=== PATIENT | female | born 1955 | race Caucasian/White ===

== ENCOUNTER 2024-04-14 06:11 | Day surgery (SDC) | payer MEDICARE, OTHER, SELFPAY ==
[2024-04-14] VITALS (8 sets, daily range): BP systolic 118–132; BP diastolic 69–88; PULSE 66–76; RESP 16; TEMP 36.3–36.9; O2SAT 93–99; BMI 21.9
--- NOTE | 2024-04-14 06:45 | PCM.PRE.AN2 ---
ASA Classification* ASA Classification ASA Classification: 2 Assessment & Plan Anesthesia* Anesthesia Assessment Anesthesia Assessment: Discussed sedation and/or anesthesia options, risks, benefits, and alternatives with patient/parents/legal guardian/POA. Questions invited. The patient/parents/legal guardian/POA seems to understand and agrees to proceed with anesthesia plan. Reviewed the physical assessment, medical history, allergy history and patient home medications list prior to surgery/procedure/anesthetic and documented any changes. Performed airway and anesthesia risk assessments. Anesthesia Type Anesthesia Type: MAC (vs GA) Anesthesia Focused Assessment* Airway Assessment Mouth opens: >3 cm Mallampati Score: II Focused Labs Anesthesia Preop lab: CBC CHEMISTRY COAG Pre-Assessment Diagnosis/Proposed Procedure Planned Operative Procedure(s): BILAT UPPER BLEPHORAPLASTY Anesthesia History Anesthesia History - help desk assistant: Anesthesia History - help desk assistant Hx Hospitalization No 03/31/24 14:57 Any Problems With Anesthesia No 03/31/24 14:57 Cholinesterase deficiency No 03/31/24 14:57 You/Your Family Experience No 03/31/24 14:57 fever (hyperthermia) with Relationship Recent Exposure to Contagious Disease Does patient have nerve No 03/31/24 14:57 stimulator Patient instructed to have device shut off --Does patient have Pacemaker or ICD? When Was Last Pacemaker Check QUESTION #4 FULL TEXT: You/Your Family Experience fever (hyperthermia) with Anesthesia Last Oral Intake Last Oral intake: Last Oral Intake NPO since Meds taken in AM with sips of water? Meds patient instructed to take am of surgery PONV PONV - help desk assistant: PONV - help desk assistant Female Yes 03/31/24 14:57 HX of Motion Sickness No 03/31/24 14:57 HX of N/V After Surgery No 03/31/24 14:57 Non-Smoker Yes 03/31/24 14:57 Duration of Surgery greater Yes 03/31/24 14:57 than 60 minutes Number of Risk Factors 3 03/31/24 14:57 PONV Score Moderate Risk 03/31/24 14:57 Height & Weight Height & Weight: Anesthesia: Height & Weight Height 5 ft 3 in 03/04/24 10:14 Respiratory Assessment Respiratory Assessment - help desk assistant: Respiratory Tract Infection Hx - help desk assistant Hx Respiratory Tract Infection No 03/31/24 14:57 STOP Sleep Apnea STOP Sleep Apnea - help desk assistant: STOP Sleep Apnea - help desk assistant Hx Hypertension Yes: CONTROLLED WITH MED 03/31/24 14:57 Hx Sleep Apnea No 03/31/24 14:57 CPAP BIPAP Do you snore loudly (louder No 03/31/24 14:57 than talking or can be heard Do you often feel tired/ No 03/31/24 14:57 fatigued/ sleepy during daytime? Has anyone observed you stop No 03/31/24 14:57 breathing during sleep? STOP Results Negative 03/31/24 14:57 QUESTION #5 FULL TEXT : Do you snore loudly (louder than talking or can be heard through closed doors)? Tobacco Use History Tobacco Use History - help desk assistant: Tobacco Use History - help desk assistant Tobacco Use Smoking Status Never smoker 03/31/24 14:57 Hx Tobacco Use No 03/31/24 14:57 Years Smoking Packs Smoked per Day Smoking Cessation Date was within the last 15 years Hx Smoking Cessation Date Hx Smoking Cessation Counseling Hematologic Medial History Hematologic Hx - help desk assistant: Hematologic Medical Hx - documentation analyst Hx of Blood Transfusion No 03/31/24 14:57 Hx of Transfusion in last 3 No 03/31/24 14:57 Months Date of Last Transfusion (if within last 3 months) Ever experience any problems No 03/31/24 14:57 with transfusion(s)? Specify any problems Hx of Preganancy in last 3 No 03/31/24 14:57 Months Nurse Filling Out Transfusion DSCHRIBER 03/31/24 14:57 & Questions: Date: 03/31/24 03/31/24 14:57 Time: 14:58 03/31/24 14:57 Patient unable to answer at this time (ie. confused, unrespo /Reproduction History /Reproductive History - help desk assistant: /Reproductive Hx- help desk assistant Hx Now No 03/31/24 14:57 Gestational Age (in weeks): EDC: Hx Hx Para Hx Section SAB No 03/31/24 14:57 Active Medications Active Medications: Current Medications Generic Name Dose Route Start Last Admin Trade Name Freq PRN Reason Stop Dose Admin Cefazolin Sodium 2 gm/ N/A 20 mls @ 400 mls/hr 04/14/24 07:30 IV 04/14/24 07:32 PREOP ONE [facility] Medical History Bladder disease Wears glasses Back pain History of IBS Heartburn Non-smoker Skin cancer Hypertension Home Medications ?Medication ?Instructions ?Recorded ?Last Taken ?Type amlodipine 5 mg tablet 5 mg PO DAILY 03/04/24 04/14/24 History tolterodine 4 mg capsule,extended 4 mg PO DAILY 03/04/24 04/13/24 History release 24 hr estradiol 1 mg tablet 1 mg PO DAILY 03/31/24 04/13/24 History medroxyprogesterone 2.5 mg tablet 2.5 mg PO DAILY 03/31/24 04/13/24 History Allergy/AdvReac Type Severity Reaction Status Date / Time Sulfa (Sulfonamide Allergy Mild hives Verified 03/31/24 14:53 Antibiotics) (sulfa drugs) Family History Aunt Breast cancer Mother Colon cancer Sister Colon cancer Grandmother Colon cancer Surgical History Hx of colonoscopy Hx of melanoma excision H/O section Social History Smoking Status: Never smoker alcohol intake: never substance use type: does not use additional social history: pt uses aspirin and ibuprofen, pt denies smoking, vaping, edibles, marijuana use No family history of blood clots, Review of Systems (Anesthesia) ROS Narrative System reviewed and no additional complaints, except as documented.
--- NOTE | 2024-04-14 07:30 | HP.PCM.SX_ITS ---
HPI - General HPI Narrative Debby Sawyer, 68 year old female referred for upper bleph consult by Bia Cam. She reports that she has trouble seeing stoplights and has to zhou her neck in order to see such things given that there is excess skin overhanging her upper eyelid margin. She has never had any eye surgery before and does not use any Botox. She is not interested in any periorbital rejuvenation other than an upper lid blepharoplasty. She is not concerned necessarily in the cosmesis but the functionality of the procedure. Pt denies smoking, denies vaping, and there is no personal or family history of blood clots. No history of thyroid eye disease. She does have a history of dry Current Encounter (DATE OF SURGERY H&P UPDATE): I saw and examined the patient this morning in pre-operative holding. We discussed risks and benefits of today's surgery and they would like to proceed. NO CHANGE in health history since last seen and evaluated. Ready to proceed with surgery. [facility] Medical History Bladder disease Wears glasses Back pain History of IBS Heartburn Non-smoker Skin cancer Hypertension Home Medications ?Medication ?Instructions ?Recorded ?Last Taken ?Type amlodipine 5 mg tablet 5 mg PO DAILY 03/04/2404/14 History tolterodine 4 mg capsule,extended 4 mg PO DAILY 04/13/24 History release 24 hr estradiol 1 mg tablet 1 mg PO DAILY 03/31/2404/13 History medroxyprogesterone 2.5 mg tablet 2.5 mg PO DAILY 03/1304/13/24 History Allergy/AdvReac Type Severity Reaction Status Date / Time Sulfa (Sulfonamide Allergy Mild hives Verified 03/31/24 14:53 Antibiotics) (sulfa drugs) Family History Aunt Breast cancer Mother Colon cancer Sister Colon cancer Grandmother Colon cancer Surgical History Hx of colonoscopy Hx of melanoma excision H/O section Social History Smoking Status: Never smoker alcohol intake: never substance use type: does not use additional social history: pt uses aspirin and ibuprofen, pt denies smoking, vaping, edibles, marijuana use No family history of blood clots, Vital Signs Vital Signs Vital Signs: 04/14/24 06:49 04/14/24 06:51 Temperature 98.4 F Temperature Source Temporal Pulse Rate 73 Respiratory Rate 16 Respiratory Pattern Normal Blood Pressure 132/88 H Blood Pressure Mean 102 Blood Pressure Source Monitor Blood Pressure Position Sitting Blood Pressure Location Left Arm Pulse Ox 99 Oxygen Delivery Method Room Air Weight Weight: 123 lb 7.342 oz Body Mass Index (BMI) 21.9 Physical Exam Narrative Pupils: PERRL EOM: EOM intact bilaterally Forehead: Slight frontalis use to overcome dermatochalasis/brow ptosis. I had her close her eyes, relax her forehead, and then open her eyes again and there was slightly worse visual field obstruction. Eyebrows: Slightly ptotic and just below the orbital rim bilaterally. It is not very noticeable at all though because she has light eyebrows. She does not pluck her eyebrow. Eyelids: * MRD 1 was 3 to 4 mm * Good levator function (approximately 13 mm) * No lagophthalmos * Snap back test: Normal, no scleral show on the lower globe at the limbus * Upper lid dermatochalasis bilaterally, obstructing vertical gaze bilaterally secondary to the skin. The skin is hanging over the central and lateral eyelashes/lid margin. Assessment & Plan Assessment/Plan (1) Dermatochalasis of both upper eyelids: PLAN: Plan Well patient has slight brow ptosis, her main problem is the excess skin Plan: We discussed the risks, benefits, and alternatives to a blepharoplasty. We also discussed a brow lift and ptosis repair. She is not interested in either of these procedures. We also discussed worsening of dry eyes with ptosis repair or lower blepharoplasty. I also talked to her about worsening of dry eyes with upper blepharoplasty (unlikely but possible), and she was accepting of these risks. We also talked about the risks of bleeding, infection, damage to surrounding structures, failure to obtain the desired result, need for revision procedures, asymmetry (we particularly talked about how she has baseline webbing on the medial aspect of her upper eyelid near her nose, worse on the right than the left, and that I can make this worse by chasing after this skin so I will likely leave that, and she was accepting of this), we also discussed lack abdominal. 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 We discussed postoperative course and expected swelling, will discuss further at the next visit. Patient is interested in getting visual field test. Photos taken today. We will submit to insurance for upper lid blepharoplasty. CPT codes for insurance prior authorization are as follows: Blepharoplasty 28797 (50 modifier) Follow-up for preop visit if approved to discuss postoperative plans and expectations INTERVAL H&P PLAN, DATE OF SURGERY: We will proceed with surgery today. We discussed options and she desires upper lid blepharoplasty only. We re- iterated the above risks of the procedure, including wounds and infection, as well as discussed existing asymmetries and risks of lagophthalmos, as well as risks of worsening of dry eyes. She agreed to proceed.
[2024-04-14] MEDS: Cefazolin 2 GM in Syringe IV (07:35)
[2024-04-14] MEDS: Povidone Iodine 30 ML Opthalmic Sol 1 DRP ×2 (08:00)
[2024-04-14] MEDS: Lidocaine 1% /Epi 1:100 (20ml) 20 ML Vial (08:10)
[2024-04-14] MEDS: Bupiv/Epi 0.25% 30 ML Vial (08:10)
[2024-04-14] MEDS: Erythromycin Base 1 OPTH.TUBE 1 APPLIC (08:23)
--- NOTE | 2024-04-14 08:47 | PCM.POST.ANE ---
Anesthesia: Postop Eval I Current Vital Signs Temperature: 97.4 F Pulse Rate: 72 Blood Pressure: 120/69 Respiratory Rate: 16 Pulse Ox: 95 Oxygen Delivery Method: Room Air Assessment Airway patent: Yes Spontaneous unlabored respirations: Yes Mental status: Awake nausea: No Vomiting: No Anesthesia Complication: No Fluid Hydration Crystalloid volume administer (ml): 700 Total IV fluid infused: 700 Progress Note Anesthesia document: Postop Eval 1 completed: No
--- NOTE | 2024-04-14 09:17 | POSTOPAN2_ITS ---
Anesthesia Postop Eval I Sum Postop Eval Completion status Anesthesia document: Postop Eval 1 completed: No Anesthesia Postop Eval I Summary Anesthesia Postop Eval I Summary: Anesthesia Postop Eval I: Assessment Summary Airway patent Yes 04/14/24 08:48 RECEPTIONIST AIRLINE [email or web address] Spontaneous unlabored Yes 04/14/24 08:48 RECEPTIONIST AIRLINE LOUNGE.[email or web address] respirations Mental status Awake 04/14/24 08:48 RECEPTIONIST AIRLINE LOUNGE.[email or web address] nausea No 04/14/24 08:48 RECEPTIONIST AIRLINE LOUNGE.[email or web address] Vomiting No 04/14/24 08:48 RECEPTIONIST AIRLINE LOUNGE.[email or web address] Anesthesia Postop Eval I: Fluid Summary Crystalloid volume administer 700 04/14/24 08:48 RECEPTIONIST AIRLINE LOUNGE.[email or web address] (ml) Colloids volume administered ( ml) Blood Product volume administered (ml) Total IV fluid infused 700 04/14/24 08:48 RECEPTIONIST AIRLINE LOUNGE.[email or web address] Anesthesia Postop Eval I: Summary Notes Anesthesia Complication No 04/14/24 08:48 RECEPTIONIST AIRLINE LOUNGE.[email or web address] Anesthesia Complication Comment: Post-operative progress note Anesthesia: Postop Eval II Evaluation Mental status: Awake Pain Level: 0 nausea: No Vomiting: No
--- NOTE | 2024-04-14 09:17 | PCM.POSTANE2 ---
Anesthesia Postop Eval I Sum Postop Eval Completion status Anesthesia document: Postop Eval 1 completed: No Anesthesia Postop Eval I Summary Anesthesia Postop Eval I Summary: Anesthesia Postop Eval I: Assessment Summary Airway patent Yes 04/14/24 08:48 POWER REACTOR [email or web address].[email or web address] Spontaneous unlabored Yes 04/14/24 08:48 POWER REACTOR OPERATOR.[email or web address] respirations Mental status Awake 04/14/24 08:48 POWER REACTOR OPERATOR.[email or web address] nausea No 04/14/24 08:48 POWER REACTOR OPERATOR.[email or web address] Vomiting No 04/14/24 08:48 POWER REACTOR OPERATOR.[email or web address] Anesthesia Postop Eval I: Fluid Summary Crystalloid volume administer 700 04/14/24 08:48 POWER REACTOR [email or web address].[email or web address] (ml) Colloids volume administered ( ml) Blood Product volume administered (ml) Total IV fluid infused 700 04/14/24 08:48 POWER REACTOR OPERATOR.[email or web address] Anesthesia Postop Eval I: Summary Notes Anesthesia Complication No 04/14/24 08:48 POWER REACTOR OPERATOR.[email or web address] Anesthesia Complication Comment: Post-operative progress note Anesthesia: Postop Eval II Evaluation Mental status: Awake Pain Level: 0 nausea: No Vomiting: No
--- NOTE | 2024-04-15 05:59 | PCM.OPRPT ---
Operative Report (Standard) Operative Information Date of Procedure: 04/14/24 Pre-Operative Diagnosis: Dermatochalasis upper eyelids Post-Operative Diagnosis: Same Surgery/Procedure Performed: Upper eyelid blepharoplasty, bilateral (CPT 42410 x 2 units with 50 modifier) recording studio set up worker: Yes Place Change Roof Bolter: Francine Salter Tasks completed by medical assistant instructor: Retracting Type of Anesthesia: MAC/Supplemental (1 cc of a 50/50 mixture of 1% lidocaine with 1:200,000 epinephrine and 0.25% Marcaine with 1:200,000 epinephrine ) RN Documented Start/Stop Times: Operation Date: 04/14/24 07:30 Case Time Into Pre-Op 04/14/24 06:19 Out of Pre-Op 04/14/24 07:29 Anesthesia Start 04/14/24 07:35 Into Room 04/14/24 07:35 Procedure Start 04/14/24 07:54 Procedure End 04/14/24 08:24 Anesthesia End 04/14/24 08:29 Out of Room 04/14/24 08:29 Into Recovery 04/14/24 08:32 Out of Recovery 04/14/24 08:59 Into Phase II Recovery 04/14/24 09:00 Out of Phase II 04/14/24 09:55 Procedure Start Time: 07:54 Procedure Stop Time: 08:24 Select all DRAINS/GRAFTS/IMPLANTS that apply: None Estimated Blood Loss: minimal Specimen collected: No Description of surgery: INDICATIONS: Debby Sawyer is a delightful 68 YO FM with upper lid dermatochalasis (with skin weighing down the upper eyelids) who presents today for blepharoplasty. In preoperative holding I marked her upper eyelid crease and the anticipated area of skin removal. We discussed the risks, benefits, and alteratives, and she agreed to proceed. OPERATIVE DETAILS: Patient was correctly identified in preoperative holding and marked. She was taken back to the operating room where she was administered sedation and prepped and draped in sterile fashion with ophthalmic Betadine solution. A timeout was performed. Appropriate upper lid blepharoplasty skin markings were then confirmed with care taken to have 9 mm between the lid crease incision and the eyelid margin centrally, and at least 6 mm laterally, with care taken not to extend medial past the puncta. The incisions did not extend lateral to the orbital rim, and they were >1 cm from the brow superiorly. The abdul were tested with skin pinch test and it looked like there was the appropriate amount of skin being excised. The skin was injected with 1% lidocaine with 1-100,000 epinephrine. It was given time to take effect. A 15 blade scalpel was used to excise the excess upper eyelid skin within the markings, leaving behind all of the orbicularis muscle. Hemostasis was obtained with Bovie electrocautery. Incisions were closed with a running 6-0 Prolene suture. The tails were taped with Steri-Strips. The same procedure was preformed on both upper eyelids. She tolerated the procedure well. The patient was awakened and taken to the PACU in stable condition. Surgical Findings: Improvement of heaviness from the skin excess weighing down the upper eyelids Complications Complications: No
== END 2024-04-14 09:55 | disposition home or self-care (01) ==
LOC: SDC 06:13 → AC 06:14
PROVIDERS: PCP Nurse Practitioner Family; Referring Provider Surgery Plastic and Reconstructive Surgery; Visit Provider Surgery Plastic and Reconstructive Surgery
PROC: (CPT 15823; principal; 2024-04-14 07:20)
DX: H02.831 Dermatochalasis of right upper eyelid (principal); I10 Essential (primary) hypertension; H02.834 Dermatochalasis of left upper eyelid; Z85.828 Personal history of other malignant neoplasm of skin
CPT/HCPCS: 15823; 00103; A4216; J2405